=== PATIENT | male | born 1990 | race Caucasian/White ===

== ENCOUNTER 2019-03-15 19:58 | Emergency (ER) | payer OTHER ==
[2019-03-15] MEDS ORDERED: ONDANSETRON 4 MG TAB.RAPDIS PO ONE (20:25)
[2019-03-15] MEDS ORDERED: OXYCODONE-ACETAMINOPHEN 5-325 MG TABLET PO ONE (20:25)
[2019-03-15] MEDS ORDERED: AMOXICILLIN TR/POT CLAVULANATE 500-125 MG TAB PO ONE (20:26)
--- NOTE | 2019-03-15 20:29 | ER Document Report ---
ED Medical Screen (RME) - General Chief Complaint: Dog Bite Stated Complaint: RIGHT HAND DOG BITE Time Seen by Provider: 03/15/19 20:25 Mode of Arrival: Ambulatory Information source: Patient Notes: 28-year-old male presented to ED for dog bite to the right hand. He states that the dog was a pimple and that there was a stray dog in the yard and he went to grab stray dog and the other dog bit him. He states that the dog's shots are up-to-date he knows the dog. He states his shots are up-to-date. Patient is alert oriented respirations regular and unlabored speaking in full sentences wa lks with even steady gait. I have greeted and performed a rapid initial assessment of this patient. A comprehensive ED assessment and evaluation of the patient, analysis of test results and completion of medical decision making process will be conducted by an additional ED providers. TRAVEL OUTSIDE OF THE [place] IN LAST 30 DAYS: No Physical Exam - Vital signs Vitals: Temp Pulse Resp BP Pulse Ox 98.6 F 83 16 145/78 H 93 03/15/19 20:12 03/15/19 20:12 03/15/19 20:12 03/15/19 20:12 03/15/19 20:12 Course - Vital Signs Vital signs: Temp Pulse Resp BP Pulse Ox 98.6 F 83 16 145/78 H 93 03/15/19 20:12 03/15/19 20:12 03/15/19 20:12 03/15/19 20:12 03/15/19 20:12
--- NOTE | 2019-03-15 21:39 | RADIOLOGY REPORT (SQ) ---
EXAM DESCRIPTION: Right hand RadLex: XR HAND 3 OR MORE VIEWS Views: 3 CLINICAL HISTORY: 28 years Male, bone tenderness COMPARISON: None. FINDINGS: Negative for acute fracture, dislocation, or radiopaque foreign body. IMPRESSION: 1. No acute findings.
[2019-03-16] MEDS ORDERED: LIDOCAINE 1%/EPINEPHRINE INJ 20 ML VIAL INJ ONE (00:26)
[2019-03-16] MEDS ORDERED: DIPH/PERTUSS(ACELL)/TETANUS VAC/PF 0.5 ML SYR (>=10YO) IM ONE (00:26)
[2019-03-16] MEDS ORDERED: AMOXICILLIN TRIHYDRATE 500 MG CAPSULE PO ONE (00:28)
[2019-03-16] MEDS ORDERED: HYDROCODONE/ACETAMINOPHEN 5-325 MG (6 TAB/ER DISP) PO PRN (00:28)
[2019-03-16 00:55] VITALS: BP 132/70
--- NOTE | 2019-03-16 01:09 | ER Document Report ---
ED Animal Bite - General Chief Complaint: Dog Bite Stated Complaint: RIGHT HAND DOG BITE Time Seen by Provider: 03/15/19 20:25 Primary Care Provider: SAM,NILE [Primary Care Provider] - Follow up as needed Mode of Arrival: Ambulatory Notes: Patient is a 28-year-old male that comes to the emergency department for chief complaint of dog bite to the right hand. Patient is right-handed. Patient states he was breaking up fighting dogs when he was bitten. He was bitten by a neighbor dog, neighbor did come get the dog and patient did find out that the patient is fully vaccinated. Dog was a pit bull. TRAVEL OUTSIDE OF THE [place] IN LAST 30 DAYS: No Past Medical History - General Information source: Patient - Social History Smoking Status: Never Smoker Frequency of alcohol use: Social Drug Abuse: None Lives with: Family Family History: Reviewed & Not Pertinent Patient has suicidal ideation: No Patient has homicidal ideation: No Renal/ Medical History: Denies: Hx Peritoneal Dialysis - Immunizations Immunizations up to date: No Hx Diphtheria, Pertussis, Tetanus Vaccination: Yes Physical Exam - Vital signs Vitals: Temp Pulse Resp BP Pulse Ox 98.6 F 83 16 145/78 H 93 03/15/19 20:12 03/15/19 20:12 03/15/19 20:12 03/15/19 20:12 03/15/19 20:12 - Notes Notes: GENERAL: Alert, interacts well. HEAD: Normocephalic, atraumatic. EYES: Pupils equal, round, and reactive to light. Extraocular movements intact. ENT: Oral mucosa moist, tongue midline. Oropharynx unremarkable. Airway patent. LUNGS: Clear to auscultation bilaterally, no wheezes, rales, or rhonchi. No respiratory distress. HEART: Regular rate and rhythm. No murmur ABDOMEN: Soft, non-tender. Non-distended. EXTREMITIES: There is a 2 cm linear partial-thickness laceration of the dorsum of the right hand at the second and third MCP areas, there is also a flap laceration over the palmar aspect of the hand in the same location. There is a tiny puncture just inferior to this over the palm. Range of motion of the thumb, fingers intact, strength intact, capillary refill and sensation intact, normal wrist, elbow exam. BACK: no cervical, thoracic, lumbar midline tenderness. No saddle anesthesia, normal distal neurovascular exam. NEUROLOGICAL: Alert and oriented x3. Normal speech. Cranial nerves II through XII grossly intact. SKIN: Warm, dry, normal turgor. No rashes or lesions noted. Course - Re-evaluation Re-evalutation: Patient with gaping partial-thickness wounds over the dorsum and palmar aspect of the right hand, these are both still bleeding hours after initial injury. X- ray does not show fracture or foreign body. Discussed with patient. Decision was made to perform slight approximation to reduce the gaping nature of the wounds, wounds were still left open, they were irrigated thoroughly, they were dressed with Xeroform and padded dressing, patient will keep these very clean, he will be placed on Augmentin, tetanus was updated, rabies not indicated because the dog was reportedly vaccinated. Discussed expectations, follow-up, return precautions. Patient states understanding and agreement. - Vital Signs Vital signs: Temp Pulse Resp BP Pulse Ox 98.5 F 82 18 132/70 H 96 03/16/19 01:13 03/16/19 01:13 03/16/19 01:13 03/16/19 01:13 03/16/19 01:13 Procedures - Laceration/Wound Repair Dorsal right hand Wound length (cm): 2 Wound's Depth, Shape: Linear Laceration pre-procedure: Sterile PPE donned, Sterile drapes applied, Shur-Clens applied Anesthetic type: 1% Lidocaine w/epi Volume Anesthetic (mLs): 4 Wound explored: Clean, No foreign body removed Irrigated w/ Saline (mLs): 50 Wound Repaired With: Sutures Suture Size/Type: 4:0, Nylon Number of Sutures: 1 - Mattress to approximate Post-procedure wound care: Sterile dressing applied Post-procedure NV exam normal: Yes Complications: No Palmar Right hand Wound length (cm): 1.5 Wound's Depth, Shape: Irregular, Flap Laceration pre-procedure: Sterile PPE donned, Sterile drapes applied, Shur-Clens applied Anesthetic type: 1% Lidocaine w/epi Volume Anesthetic (mLs): 4 Wound explored: Clean, No foreign body removed Irrigated w/ Saline (mLs): 50 Wound Repaired With: Sutures Suture Size/Type: 4:0, Nylon Number of Sutures: 2 Layer Closure?: No Post-procedure wound care: Sterile dressing applied Post-procedure NV exam normal: Yes Complications: No Discharge - Discharge Clinical Impression: Dog bite Qualifiers: Encounter type: initial encounter Qualified Code(s): W54.0XXA - Bitten by dog, initial encounter Laceration of right hand Qualifiers: Encounter type: initial encounter Foreign body presence: without foreign body Qualified Code(s): S61.411A - Laceration without foreign body of right hand, initial encounter Condition: Stable Disposition: HOME, SELF-CARE Instructions: Tetanus Immunization Given ([facility]) Additional Instructions: Sutures need to be removed in 1 week. Unfortunately the wound could not be closed because of the contamination and infection risk, these were slightly approximated because of the gaping nature. Keep the Xeroform (yellow) dressing on for 2 days, afterwards remove, clean with soap and water, apply topical antibiotic dressing. Take antibiotics to completion, I recommend an [id number] probiotic while taking this to avoid diarrhea. Return for any signs of infection including pain, spreading redness, discolored drainage, fever, or any other concerning symptoms. Prescriptions: Amox Tr/Potassium Clavulanate [Augmentin 875-125 Tablet] 1 tab PO BID 7 Days tablet Forms: Return to Work Referrals: [facility] [Primary Care Provider] - Follow up as needed
== END 2019-03-16 01:14 | disposition home or self-care (01) ==
LOC: ER 19:58
DX: S61.411A Laceration without foreign body of right hand, initial encounter (principal); W54.0XXA Bitten by dog, initial encounter
CPT/HCPCS: 12002; 99283; 90471; 73130; 90715; S0119; J3490